=== PATIENT | male | born 1995 | race Caucasian/White ===

== ENCOUNTER → 2021-04-18 | Outpatient (CLI) | payer OTHER | LOC: LAB 15:27 | DX: Z20.822 Contact with and (suspected) exposure to COVID-19 (principal) ==

== ENCOUNTER → 2021-11-28 | Outpatient (CLI) | payer OTHER | LOC: LAB 09:32 | DX: K21.9 Gastro-esophageal reflux disease without esophagitis (principal); F51.02 Adjustment insomnia; F41.8 Other specified anxiety disorders ==